=== PATIENT | female | born 1965 | race Caucasian/White ===

== ENCOUNTER 2017-10-28 23:13 | Inpatient (IN) | payer OTHER ==
[~2017-10-28] VITALS: Ht 165.1 cm; Wt 60.3 kg
[2017-10-29] VITALS (10 sets, daily range): BP systolic 92–107; BP diastolic 63–84
[2017-10-29] MEDS ORDERED: MORPHINE SULFATE 2 MG/ML VIAL. IV PRN ×2 (04:30→08:45)
[2017-10-29] MEDS ORDERED: ACETAMINOPHEN 325 MG TABLET. PO PRN ×2 (08:15→08:45)
--- NOTE | 2017-10-29 08:30 | EKG ---
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
[2017-10-29] MEDS ORDERED: DOCUSATE SODIUM 100 MG CAPSULE. PO PRN (08:45)
[2017-10-29] MEDS ORDERED: ONDANSETRON PF 4 MG/2 ML VIAL. IV PRN (08:45)
[2017-10-29] MEDS ORDERED: traMADol 50 MG TABLET PO PRN (08:45)
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
[2017-10-29 10:14] LABS: BASO # 0.1 x10^3/uL (0.0-0.2); BASO % 1 % (0-3); EOS # 0.1 x10^3/uL (0.0-0.7); EOS % 1 % (0-3); HEMATOCRIT 36.8 % (36.0-47.0); HEMOGLOBIN 12.8 g/dL (12.0-15.5); LYMPH # 1.9 x10^3/uL (1.0-4.8); LYMPH % 22 % (24-48); MEAN CORPUSCULAR HEMOGLOBIN 31 pg (25-35); MEAN CORPUSCULAR HGB CONC 35 g/dL (31-37); MEAN CORPUSCULAR VOLUME 89 fL (79-100); MONO # 0.6 x10^3/uL (0.0-1.1); MONO % 7 % (0-9); NEUT # 6.1 x10^3uL (1.8-7.7); NEUT % 70 % (31-73); PLATELET COUNT 271 x10^3/uL (140-400); RED BLOOD COUNT 4.16 x10^6/uL (3.50-5.40); RED CELL DISTRIBUTION WIDTH 13.3 % (11.5-14.5); WHITE BLOOD COUNT 8.7 x10^3/uL (4.0-11.0)
[2017-10-29 10:15] LABS: CALCIUM 8.7 mg/dL (8.5-10.1); CREATININE 0.7 mg/dL (0.6-1.0); GFR 87.5; POTASSIUM 3.7 mmol/L (3.5-5.1)
[2017-10-29 11:01] LABS: PROTHROMBIN TIME PATIENT 13.1 SEC (11.7-14.0)
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
[2017-10-29] MEDS ORDERED: IV NORMAL SALINE 1000ML BAG 1,000 ML IV ONE (13:00)
--- NOTE | 2017-10-29 13:07 | RAD ---
CT of the head without contrast, 10/29/2017: HISTORY: Follow-up subdural hematoma Comparison is made to a study from 10/28/2017. The ventricles are within normal limits in size. There is no shift of the midline structures. There is slight thickening of the tentorium on the right compared to the left, as best seen on today's coronal reconstructions. A similar appearance was present on yesterday's axial scans. No intra-axial hemorrhage is seen. The bony structures are unremarkable. IMPRESSION: 1. Slight tentorial thickening on the right may be due to a tiny amount of subdural hemorrhage or scarring. No hemorrhage of significant size is evident.. 2. No significant change since yesterday's study. PQRS Compliance Statement: One or more of the following individualized dose reduction techniques were utilized for this examination: 1. Automated exposure control 2. Adjustment of the mA and/or kV according to patient size 3. Use of iterative reconstruction technique Electronically signed by: Dean Trevino MD (10/29/2017 1:05 PM) [facility]
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
[2017-10-29] MEDS ORDERED: FAMOTIDINE 20 MG TABLET. PO SCH (21:00)
== END 2017-10-29 14:51 | disposition home or self-care (01) | DRG 87 ==
LOC: 1 WEST ICU 10-29 01:37
PROVIDERS: ADMIT Internal Medicine; ATTEND Internal Medicine
DX: S06.5X0A Traumatic subdural hemorrhage without loss of consciousness, initial encounter (principal); F07.81 Postconcussional syndrome; Z82.49 Family history of ischemic heart disease and other diseases of the circulatory system; V29.9XXA Motorcycle rider (driver) (passenger) injured in unspecified traffic accident, initial encounter; Y93.55 Activity, bike riding; Y92.89 Other specified places as the place of occurrence of the external cause; Y99.8 Other external cause status; Z90.10 Acquired absence of unspecified breast and nipple
CPT/HCPCS: 36415; 70450; 71045; 80048; 85025; 85610; 87641; 93005